=== PATIENT | male | born 1955 | race Caucasian/White ===

== ENCOUNTER 2022-11-06 18:28 | Outpatient (REF) | payer MEDICARE, MEDICAID, SELFPAY ==
[2022-11-05 14:05] LABS: Bilirubin Negative (Negative); Blood Moderate (Negative); Clarity Clear (Clear); Glucose Negative (Negative); Ketones Negative (Negative); Leukocyte Esterase Small (Negative); Nitrite Positive (Negative); Urobilinogen 0.2 mg/dL (Up to 0.2); pH 6.5 (5-8)
[2022-11-05 14:10] LABS: Bacteria Many HPF (Negative); Epithelial Cells Negative HPF (Negative); WBC 20-50 HPF (0-5)
[2022-11-05 14:11] LABS: C & S Indicated? Yes; Casts Negative LPF (Negative); Crystals Negative HPF (Negative); Mucus Negative (Negative)
--- OUTSIDE RECORDS SUMMARY | 2022-11-06 18:33 | XMS_ITS ---
Author Name Francesco Wick Address [address], [place] [id number] Organization [facility] Address [address], [place] [id number] Care Team Providers Care Care Tech Name Role Phone Francesco Wick Unavailable [phone] PROBLEMS Type Condition ICD9-CM Code [id number] Code Onset Dates Condition Status SNOMED Code Problem Numbness of left foot R20.8 Active 54118574 Problem Restless legs syndrome G25.81 Active 11860329 Problem Prostate cancer C61 Active 52169235 4 Problem Bone metastases C79.51 Active 69685369 ALLERGIES Substance Reaction Event Type Date Status Seasonale Unknown Drug Allergy 12 May, 2022 Active ENCOUNTERS Encounter Location Date Diagnosis [facility] [address] [place] [id number] Jun, [facility] [address] [place], [place] [id number] May, Bone metastases C79.51 [facility] [address] [id number] May, [address] [facility] [address] [id number] May, Bone metastases C79.51 [facility] [address] [place] [id number] May, Bone metastases C79.51 ; Restless legs syndrome G25.81 and Numbness of left foot R20.8 [facility] [address] [place], [place] [id number] Apr, [facility] [address] [place], [place] [id number] Apr, Bone metastases C79.51 [facility] [address] [place], [place] [id number] Apr, Prostate cancer C61 [facility] [address] [facility] [address] [place] [id number] Apr, [facility] [address] [facility] [address] [place] [id number] Apr, Bone metastases C79.[address] [facility] [address] [place], [place] [id number] Mar, [facility] [address] [facility] [address] [place] [id number] Mar, Prostate cancer C61 ; Bone metastases C79.51 ; Flushing R23.2 and Adverse effect of unspecified drugs, medicaments and biological substances, initial encounter T50.905A [facility] [address] [facility] [address] [place] [id number] Mar, [facility] [address] [place], [place] [id number] Feb, [facility] [address] [id number] Feb, Prostate cancer C61 and Bone metastases C79.51 [facility] [address] [place], [place] [id number] Feb, [facility] [address] [place], [place] [id number] Feb, [facility] [address] [facility] [address] [place] [id number] Feb, Bone metastases C79.51 [facility] [address] [id number] January, [facility] [address] [place], [place] [id number] January, [facility] [address] [id number] January, Prostate cancer C61 and Bone metastases C79.51 [facility] [address] [place], [place] [id number] January, [facility] [address] [facility] [address] [place] [id number] January, Prostate cancer C61 and Bone metastases C79.51 IMMUNIZATIONS No Known Immunizations SOCIAL HISTORY Never Assessed REASON FOR REFERRAL FUNCTIONAL STATUS PLAN OF CARE VITAL SIGNS Height 72 in 2022-04-08 Height 72 in 2022-03-04 Height 72 in 2022-02-11 Height 72 in 2022-01-21 Weight 348 lbs 2022-04-08 Weight 356 lbs 2022-03-04 Weight 361 lbs 2022-02-11 Weight 351.2 lbs 2022-01-21 Temperature 97.0 degrees Fahrenheit Heart Rate 58 /min 2022-04-08 Heart Rate 62 /min 2022-03-04 Heart Rate 59 /min 2022-02-11 Heart Rate 64 /min 2022-01-21 Oximetry 98 2022-04-08 Oximetry 99 2022-03-04 Oximetry 99 2022-02-11 Oximetry 94 2022-01-21 Respiratory Rate 20 /min 2022-01-21 BMI 47.19 kg/m2 2022-04-08 BMI 48.28 kg/m2 2022-03-04 BMI 48.96 kg/m2 2022-02-11 BMI 47.63 kg/m2 2022-01-21 Blood pressure systolic 144 mm Hg Blood pressure diastolic 80 mm Hg 2022-04 MEDICATIONS Medication Instructions Dosage Frequency Start Date End Date Duration Status Prochlorperazine Maleate 10 MG Orally every 6 hours as needed 1 tablet 30 days Active Jjua-Obqfm-INB-Cole wellia-Vit D - as directed Act adama Pantoprazole Sodium 40 MG Orally Once a day 1 tablet 24h January, 30 day(s) Active Ezetimibe 10 MG Orally Once a day 1 tablet 24h 30 day(s) Active Morphine Sulfate ER 30 MG Orally every 12 hrs 1 tablet 12h May, Active CPAP Active Lisinopril 20 MG Orally Once a day 1 tablet 24h 30 day(s) Active Marijuana (Medical) As Directed As Directed Active Gabapentin 300 MG Orally Once a day in evening 1 capsule May, 30 day(s) Active Nitroglycerin 0.4 MG as directed Active Abiraterone Acetate 500 MG as directed Act adama amLODIPine Besylate 2.5 MG Orally Once a day 1 tablet 24h 30 day(s) Active Diclofenac Sod-Lidocaine HCl 1-4.5 % Externally to knees four times a day 1 application as needed 6h Apr, 30 days Active Aspirin EC 81 MG Orally Once a day 1 tablet 24h 30 day(s) Active Furosemide 20 MG Orally Once a day 1 tablet 24h 30 day(s) Active Acetaminophen 500 MG Orally every 6 hrs 2 tablet as needed 6h Active Ondansetron HCl 8 MG Orally every 6 hours prn nausea 1 tablet as needed January, 30 days Active Venlafaxine HCl ER 150 MG Orally Once a day 1 capsule with food 24h 11 Mar, 2022 Active Morphine Sulfate 15 MG Orally every 4 hours 1 tablet as needed 4h 14 May, 2022 Active predniSONE 5 MG Orally three times daily 1 tablet Active Multi For Him - as directed Active PROCEDURES Procedure Date Ordered Result Body Site 26 OUTPATIENT PROLONGED SERVICE FIRST HOUR February 11 OUTPATIENT PROLONGED SERVICE FIRST HOUR January 21 PHONE E/M PHYS/QHP 21-30 MIN March 18, 2022 PHONE E/M PHYS/QHP 21-30 MIN January 28, 2022 PHONE E/M PHYS/QHP 21-30 MIN May 20, 2022 RESULTS No Results REASON FOR VISIT Pain management, [facility] did not get to pharmacy, Fall, right leg pain post ED. Day 4. Worse bruisingand pain. Could not get out of bed this am. Ran out of oxy 10 mg - got 12 in ED. Just wants something to bridge through to ability to function. , Refill Request , Dicofennac/Lidocaine, Nausea ? refill , Chemo, Call Back , Morphine, chest pain and elg swelling review, Palliative care update 03/01 , PA submitted waiting for response, PC f/u Pain and nausea, Morphine/Nausea, Pain medications , Intialvisit Insurance Providers Health Insurance Type Health Plan Insurance Address Health Plan Insurance Phone Health Plan Insurance Name Health Plan Coverage Dates Member ID Patient Relationship to Subscriber Patient Address Patient Phone Patient Name Patient Date of Subscriber ID Subscriber Name Subscriber Date of Group No NGS MEDICARE [address] [place] [phone] 41 [employer] MEDICARE self Miguel Angel Martino [id number] MEDICARE [address] [place] [phone] 41 MEDICARE self Miguel Angel Martino [id number] [facility] [employer] CLAIM PROCESSING DEPT [address] [facility] [phone] [facility] HEALTH[employer] FAMILIES self Miguel Angel Martino [id number] MEDICARE PART A [address] [facility] [address] MEDICARE PART A self Miguel Angel Martino [id number] [place] [address] CLAIM PROCESSING DEPT [facility] [phone] [place] [employer] self Miguel Angel Martino [id number]
== END 2022-11-06 18:29 | disposition home or self-care (01) ==
LOC: LBN 18:28
PROVIDERS: PCP Family Medicine; Visit Provider Nurse Practitioner Adult Health
DX: C61 Malignant neoplasm of prostate (principal); C79.51 Secondary malignant neoplasm of bone
CPT/HCPCS: 87077; 81003; 81015; 87086; 87186